=== PATIENT | female | born 1945 ===

== ENCOUNTER 2018-08-28 11:24 | Inpatient (IN) | payer MEDICARE, MEDICAID ==
[2018-08-28] MEDS ORDERED: Iohexol 240 (50 ml) PO ONE (11:53)
[2018-08-28] MEDS ORDERED: Sodium Chloride 0.9% 1,000 ML IV STA (11:58)
[2018-08-28 12:23] LABS: BASO # 0.1 K/uL (0.0-0.2); BASO % 0.6 % (0.0-2.0); EOS # 0.1 K/uL (0.0-0.7); EOS % 1.1 % (0.0-4.0); HEMOGLOBIN 10.2 g/dL (12.0-16.0); LYMPH # 2.2 K/uL (1.0-4.3); LYMPH % 22.6 % (20.0-40.0); MEAN CELL VOLUME 88.1 fl (81.0-99.0); MEAN CORPUSCULAR HEMOGLOBIN 29.2 pg (27.0-31.0); MEAN CORPUSCULAR HGB CONC 33.1 g/dL (33.0-37.0); MEAN PLATELET VOLUME 9.1 fl (7.2-11.7); MONO # 0.8 K/uL (0.0-0.8); NEUT # 6.5 K/uL (1.8-7.0); NEUT % 67.7 % (50.0-75.0); RBC 3.49 Mil/uL (3.80-5.20); RED CELL DISTRIBUTION WIDTH 15.4 % (11.5-14.5); WHITE BLOOD COUNT 9.6 K/uL (4.8-10.8)
[2018-08-28] MEDS ORDERED: Iohexol 240 (50 ml) ONE (12:23)
[2018-08-28 12:32] LABS: INR 0.9; PROTHROMBIN TIME 10.7 Seconds (9.8-13.1)
[2018-08-28 12:35] LABS: PARTIAL THROMBOPLASTIN TIME 29.9 Seconds (25.6-37.1)
[2018-08-28 12:36] LABS: ALT/SGPT 29 U/L (9-52); AST/SGOT 36 U/L (14-36); BLOOD UREA NITROGEN 30 mg/dl (7-17); CALCIUM 10.3 mg/dL (8.4-10.2); GFR NON-AFRICAN AMERICAN 17
--- NOTE | 2018-08-28 12:39 | RAD ---
Date of service: 08/28/2018 HISTORY: dyspnea COMPARISON: 10/11/2010 FINDINGS: LUNGS: No active pulmonary disease. PLEURA: No significant pleural effusion identified, no pneumothorax apparent. CARDIOVASCULAR: No aortic atherosclerotic calcification present. Normal cardiac size. No pulmonary vascular congestion. OSSEOUS STRUCTURES: No significant abnormalities. VISUALIZED UPPER ABDOMEN: Normal. OTHER FINDINGS: None. IMPRESSION: No active disease.
--- NOTE | 2018-08-28 13:42 | ED PDOC ---
HPI: Abdomen History Per: Patient, Family Additional Complaint(s): Pt is a 72 y/o female with hx of Gastritis, Lupus, CKD, Chronic nausea presenting with intractable vomiting, nausea, diarrhea, and abdominal pain x 2 days. daughter at bedside offering most of history as pt was in distress. daughter states she has had chronic nausea for the past 6 months and was diagnosed with gastritis via endoscopy. 1 week ago she was treated for a cellulites of her Right LE with Clindamycin which she has been taking and symptoms began after. Localizes abdominal pain to epigastric region. She denies fevers, chest pain, sob, dysuria, dark tarry stools or bright red bleed. ROS: +Generalized weakness PMD: Dr. Her <Geni Connolly - Last Filed: 08/28/18 15:41> <Gabriel Sheets - Last Filed: 08/28/18 15:48> Time Seen by Provider: 08/28/18 11:37 Chief Complaint (Nursing): Weakness/Neurological Deficit Supervising Attending Note - Supervising Attending Note The Documented history was done by the: Physician Hot Metal Mixer Operator Helper The documented physical exam was done by the: Physician Hot Metal Mixer Operator Helper The documented procedures were done by the: Physician Hot Metal Mixer Operator Helper - Attestation: I have personally seen and examined this patient.: Yes I have fully participated in the care of the patient.: Yes I have reviewed all pertinent clinical information: Yes - Notes: Notes:: Abd pain, nausea, vomit, diarrhea <Gabriel Sheets - Last Filed: 08/28/18 15:48> Past Medical History Reviewed: Historical Data, Nursing Documentation, Vital Signs Vital Signs: Last Vital Signs Temp 97.7 F 08/28/18 11:27 Pulse 82 08/28/18 11:27 Resp 16 08/28/18 11:27 BP 165/89 H 08/28/18 11:27 Pulse Ox 100 08/28/18 11:27 - Medical History PMH: No Chronic Diseases, Gastritis, HTN - Surgical History Surgical History: No Surg Hx - Family History Family History: States: No Known Family Hx - Living Arrangements Living Arrangements: With Family - Social History Current smoker - smoking cessation education provided: No <Geni Connolly - Last Filed: 08/28/18 15:41> Vital Signs: Last Vital Signs Temp 97.7 F 08/28/18 11:27 Pulse 82 08/28/18 11:27 Resp 16 08/28/18 11:27 BP 165/89 H 08/28/18 11:27 Pulse Ox 100 08/28/18 15:42 <Gabriel Sheets M - Last Filed: 08/28/18 15:48> - Home Medications Home Medications: Ambulatory Orders Medication Instructions Recorded Albuterol Sulfate [Proair Hfa] 2 puff IH Q6 PRN 08/28/18 Budesonide/Formoterol Fumarate 2 puff IH Q12 08/28/18 [Symbicort 160-4.5 Mcg Inhaler] Cholecalciferol (Vitamin D3) 5,000 unit PO DAILY 08/28/18 [Vitamin D3] Clindamycin [Cleocin] 300 mg PO TID 08/28/18 Dexlansoprazole [Dexilant] 30 mg PO DAILY 08/28/18 Ferrous Gluconate [Fergon] 324 mg PO BID 08/28/18 Gabapentin [Neurontin] 300 mg PO DAILY 08/28/18 Hydroxychloroquine Sulfate 200 mg PO Q12 08/28/18 [Plaquenil] Insulin Glargine,Hum.rec.anlog 30 unit SC BID 08/28/18 [Lantus] Insulin Lispro [humALOG] 10 unit SC ACTID 08/28/18 Isosorbide Mononitrate ER [Imdur 30 mg PO DAILY 08/28/18 ER] Metoprolol Tartrate [Lopressor] 100 mg PO BID 08/28/18 Ondansetron HCl [Zofran] 4 mg PO Q8 PRN 08/28/18 amLODIPine [Norvasc] 10 mg PO HS 08/28/18 hydrALAZINE [Apresoline] 50 mg PO Q8 08/28/18 - Allergies Allergies/Adverse Reactions: Allergies Allergy/AdvReac Type Severity Reaction Status Date / Time No Known Allergies Allergy Verified 08/28/18 11:27 Review of Systems Constitutional: Negative for: Fever, Chills Cardiovascular: Negative for: Chest Pain, Palpitations Respiratory: Negative for: Cough, Shortness of Breath Gastrointestinal: Positive for: Nausea, Vomiting, Abdominal Pain, Diarrhea. Negative for: Melena, Hematochezia, Hematemesis Genitourinary Female: Negative for: Dysuria Neurological: Positive for: Weakness <Geni Connolly - Last Filed: 08/28/18 15:41> Physical Exam - Physical Exam Appears: Positive for: In Acute Distress (actively vomiting, moderately distressed) Skin: Positive for: Normal Color. Negative for: Diaphoresis, Pallor ENT: Positive for: Normal ENT Inspection Neck: Positive for: Normal Cardiovascular/Chest: Positive for: Regular Rate, Rhythm. Negative for: Murmur Respiratory: Positive for: Normal Breath Sounds. Negative for: Accessory Muscle Use, Crackles, Wheezing Gastrointestinal/Abdominal: Positive for: Bowel Sounds (active), Soft, Tenderness (diffuse, marked in epigastric), Other (Obese abdomen). Negative for: Organomegaly, Distended, Guarding, Rebound, Hernia, Asicites Extremity: Positive for: Other (BL venous stasis with chronic skin changes, no areas of warmth or erythema seen. distal pulses palpable) Neurologic/Psych: Positive for: Alert, Oriented <MohsenGeni bustamante - Last Filed: 08/28/18 15:41> - Physical Exam Cardiovascular/Chest: Positive for: Regular Rate, Rhythm Respiratory: Positive for: Normal Breath Sounds Gastrointestinal/Abdominal: Positive for: Soft, Tenderness <Gabriel Sheets M - Last Filed: 08/28/18 15:48> - Laboratory Results Result Diagrams: 08/28/18 12:10 08/28/18 12:10 Lab Results: PT 10.7 Seconds (9.8-13.1) 08/28/18 12:10 INR 0.9 08/28/18 12:10 APTT 29.9 Seconds (25.6-37.1) 08/28/18 12:10 Troponin I < 0.0120 ng/mL (0.00-0.120) 08/28/18 12:10 Total Bilirubin 0.5 mg/dl (0.2-1.3) 08/28/18 12:10 AST 36 U/L (14-36) 08/28/18 12:10 ALT 29 U/L (9-52) 08/28/18 12:10 Alkaline Phosphatase 81 U/L (38-126) 08/28/18 12:10 Total Protein 7.9 G/DL (6.3-8.2) 08/28/18 12:10 Albumin 4.0 g/dL (3.5-5.0) 08/28/18 12:10 Globulin 3.9 gm/dL (2.2-3.9) 08/28/18 12:10 Albumin/Globulin Ratio 1.0 (1.0-2.1) 08/28/18 12:10 - ECG O2 Sat by Pulse Oximetry: 100 <Geni Connolly - Last Filed: 08/28/18 15:41> - Laboratory Results Result Diagrams: 08/28/18 12:10 08/28/18 12:10 Lab Results: PT 10.7 Seconds (9.8-13.1) 08/28/18 12:10 INR 0.9 08/28/18 12:10 APTT 29.9 Seconds (25.6-37.1) 08/28/18 12:10 Troponin I < 0.0120 ng/mL (0.00-0.120) 08/28/18 12:10 Total Bilirubin 0.5 mg/dl (0.2-1.3) 08/28/18 12:10 AST 36 U/L (14-36) 08/28/18 12:10 ALT 29 U/L (9-52) 08/28/18 12:10 Alkaline Phosphatase 81 U/L (38-126) 08/28/18 12:10 Total Protein 7.9 G/DL (6.3-8.2) 08/28/18 12:10 Albumin 4.0 g/dL (3.5-5.0) 08/28/18 12:10 Globulin 3.9 gm/dL (2.2-3.9) 08/28/18 12:10 Albumin/Globulin Ratio 1.0 (1.0-2.1) 08/28/18 12:10 - ECG Pulse Ox Interpretation: Normal - CT Scan/US ct Other Rad Studies (CT/US): Read By Radiologist Other Rad Interpretation: colitis - Progress ED Course And Treament: 1547: Stable. AAOx3. Pain controlled. Spoke with Dr. Garcia. Will admit. <Gabriel Shetes - Last Filed: 08/28/18 15:48> Medical Decision Making Medical Decision Making: PT is a 72 y/o female with hx of gastritis and chronic vomiting, presenting with 2 day hx of acute abdominal pain, intractable vomiting, and diarrhea, in recent setting of antiboitic use. CBC CMP Lipase C deff, Stool Cx Abdomen Pelvis CT w/ IV contrast Cxray EKG Pepcid Pantaprazole 1300 PT re-assessed, reports vomiting resolved. Lying in bed, appears comfortable. Granddaughter at bedside. Labs reviewed- C BUN 30/ Crea2.8. Pt reports that she was told her Kidney function is low. No labs for comparison. Remainder of labs normal. CT abdomen pending 1342 CT abdomen report reviewed: <Geni Connolly - Last Filed: 08/28/18 15:41> Disposition <Geni Connolly - Last Filed: 08/28/18 15:41> - Patient ED Disposition Is Patient to be Admitted: Yes Counseled Patient/Family Regarding: Studies Performed, Diagnosis - Disposition Disposition Time: 15:48 - Pt Status Changed To: Hospital Disposition Of: Inpatient - Admit Certification Admit to Inpatient:: After my assessment, the patient will require hospitalization for at least two midnights. This is because of the severity of symptoms shown, intensity of services needed, and/or the medical risk in this patient being treated as an outpatient. - POA Present On Arrival: None <Gabriel Sheets - Last Filed: 08/28/18 15:48> - Clinical Impression Clinical Impression: Renal insufficiency, Colitis, Dehydration - Disposition Condition: FAIR
--- NOTE | 2018-08-28 15:25 | CT ---
Date of service: 08/28/2018 PROCEDURE: CT Abdomen and Pelvis with contrast HISTORY: abdominal pain, vomiting, diarrhea COMPARISON: None. TECHNIQUE: Oral contrast only. Radiation dose: Total exam DLP = <inf_radiation_dlp> mGy-cm. This CT exam was performed using one or more of the following dose reduction techniques: Automated exposure control, adjustment of the mA and/or kV according to patient size, and/or use of iterative reconstruction technique. FINDINGS: LOWER THORAX: Unremarkable. LIVER: Unremarkable. No gross lesion or ductal dilatation. GALLBLADDER AND BILE DUCTS: Unremarkable. PANCREAS: Unremarkable. No gross lesion or ductal dilatation. SPLEEN: Unremarkable. ADRENALS: Unremarkable. No mass. KIDNEYS AND URETERS: Unremarkable. No hydronephrosis. No solid mass. VASCULATURE: Unremarkable. No aortic aneurysm. No atherosclerotic calcification or mural plaque present. BOWEL: Thickening of the wall of the colon in its entirety. The findings are suspicious for colitis. Diverticulosis without an acute inflammatory component or other associated pathologic process. APPENDIX: A normal appendix is visualized in it's entirety. PERITONEUM: Unremarkable. No free fluid. No free air. LYMPH NODES: Unremarkable. No enlarged lymph nodes. BLADDER: Unremarkable. REPRODUCTIVE: Calcified, fibroid uterus. BONES: No acute fracture. OTHER FINDINGS: None. IMPRESSION: Thickening of the wall of the colon likely to represent diffuse colitis without evidence of mechanical obstruction. Additional benign and/or incidental findings described above.
[2018-08-28] MEDS ORDERED: Piperacillin/Tazobact 3.375 GM in Sodium Chloride 0.9% 100 ML IV STA (15:35)
[2018-08-28] MEDS ORDERED: Piperacillin/Tazobact 3.375 gm Inj IVPB ONE (16:36)
[2018-08-28] MEDS ORDERED: Morphine 4 MG/ML VIAL IVP STA (19:00)
[2018-08-29] MEDS: Dextrose 5%/0.9% NS 1,000 ML IV SCH ×2 (02:04→13:22)
[2018-08-29 08:50] LABS: HEMOGLOBIN 9.9 g/dL (12.0-16.0); MEAN CELL VOLUME 89.7 fl (81.0-99.0); MEAN CORPUSCULAR HEMOGLOBIN 29.8 pg (27.0-31.0); MEAN CORPUSCULAR HGB CONC 33.3 g/dL (33.0-37.0); RBC 3.31 Mil/uL (3.80-5.20); RED CELL DISTRIBUTION WIDTH 15.7 % (11.5-14.5); WHITE BLOOD COUNT 8.2 K/uL (4.8-10.8)
[2018-08-29 09:51] LABS: ALBUMIN 3.6 g/dL (3.5-5.0); CALCIUM 9.6 mg/dL (8.4-10.2)
--- NOTE | 2018-08-29 13:27 | CARD ---
APPROVED REPORT Date of service: 08/28/2018 EKG Measurement Heart [id number] <Conclusion> Normal sinus rhythm Minimal voltage criteria for LVH, may be normal variant Borderline ECG
[2018-08-29] MEDS ORDERED: Sodium Chloride 0.9% 1,000 ML IV SCH (20:15)
[2018-08-29] MEDS: Ciprofloxacin 400mg/200ml D5W 400 MG/200 ML BAG IVPB SCH (21:05)
--- NOTE | 2018-08-30 03:18 | CON ---
DATE: 08/29/2018 NEPHROLOGY CONSULTATION LOCATION: [facility]. PROVIDING NEPHROLOGY COVERAGE FOR: Dr. Gomez. HISTORY OF PRESENT ILLNESS: The patient is a 72-year-old female with past medical history of gastritis, lupus, and CKD, presented with intractable vomiting. Nephrology being consulted for renal insufficiency. The patient reports persistent vomiting since previous 4 days prior to presentation; reports inability to keep down any p.o. intake without vomiting; did have several episodes of diarrhea yesterday and today. Vomiting has subsided today and the patient currently tolerating p.o. liquid diet. The patient otherwise denies any lightheadedness/dizziness. Denies any decrease in urination. The patient reports following with her senior cytogenetic technologist although she cannot remember the name; reports kidney function of about 32 several months ago. The patient denies ever having renal biopsy. PAST MEDICAL HISTORY: As above. SOCIAL HISTORY: Nonsmoker. FAMILY HISTORY: Unknown. MEDICATIONS: Only takes Tylenol, denies any NSAID use. REVIEW OF SYSTEMS: CONSTITUTIONAL: Appetite had been good up until vomiting started. HEENT: Stable vision. No dysphagia. RESPIRATORY: Denies any dyspnea. CARDIOVASCULAR: No chest pain, no palpitations. GASTROINTESTINAL: As per HPI. GENITOURINARY: As per HPI. Also with some mild dysuria. 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 NEUROLOGIC: No dizziness. SKIN: Denies any pruritus or rashes. PHYSICAL EXAMINATION: VITAL SIGNS: This evening, blood pressure 164/88, heart rate 102, respirations 20, temperature 97.6, O2 sat 96% on room air. GENERAL: No distress, conversing coherently in full sentences. HEENT: Moist mucous membranes. Nonicteric. No cervical lymphadenopathy. RESPIRATORY: Lungs are clear to auscultation bilaterally. No rales, no rhonchi, and no wheezes. CARDIOVASCULAR: Heart sound S1 and S2 normal. No murmurs, no gallops, no rubs. GASTROINTESTINAL: Abdomen is soft, nontender, nondistended. GENITOURINARY: No bladder distention. EXTREMITIES: No lower extremity edema. NEUROLOGIC: Normal sensation in distal extremities. PSYCHIATRIC: Normal mood. Normal affect. SKIN: Warm. No cyanosis. LABORATORY DATA: From this morning, CBC: WBC 8.2, hemoglobin 9.9, hematocrit 29.7, and platelets 108. Chemistry panel: Sodium 139, potassium 3.8, chloride 103, bicarb 25, BUN 24, creatinine 2.9, glucose 162, calcium 9.6. AST 31, ALT 39. Albumin 3.6. No urine studies available. CT abdomen and pelvis directly visualized. No hydronephrosis. ASSESSMENT AND PLAN: 1. Renal insufficiency. Renal function not available at this time; unclear if current serum creatinine level reflects her baseline or there is a component of acute kidney injury. No improvement seen with intravenous fluids despite getting 1 L bolus in emergency room and being kept on intravenous fluids during admission. Cannot rule out any glomerular disease without further studies including at least urinalysis. For now, we will check urine electrolytes. Checking complements, antinuclear antibody, double-stranded DNA antibody and anti-Rodriguez antibody to look for evidence of active lupus. Checking random urine for protein and creatinine to assess for degree of proteinuria. Need to avoid nephrotoxic agents. We will try to obtain outside records to assess the patient's baseline renal function. 2. Hypertensive chronic kidney disease. Blood pressure markedly elevated, although the patient did not receive any antihypertensive medications this morning; currently being restarted on home medications, we will reassess after all home medications given. Otherwise, a stable volume status. No need for diuretics at this time. We will continue gentle intravenous fluids. 3. Anemia, possibly due to chronic kidney disease. We will check iron studies and treat accordingly. 4. Chronic kidney disease. We will obtain renal ultrasound to assess for evidence of longstanding chronic kidney disease. We will obtain parathyroid hormone and 25-hydroxy vitamin D levels to assess and treat chronic kidney disease mineral bone disorder. 5. Colitis. The patient currently on Cipro and Flagyl. Cipro needs to be dosed for creatinine clearance less than 20 and dosed just once daily; no renal dose reduction needed for Flagyl. 6. Systemic lupus erythematosus, unclear if there is any renal manifestation of this disease, currently on Plaquenil. We will continue the same, checking for evidence of just nephritis as above. Thank you for this referral. We will be following up closely. Dave York MD
[2018-08-30] MEDS ORDERED: Pantoprazole 40 mg EC Tab PO SCH (09:00)
[2018-08-30] MEDS: Ciprofloxacin 400mg/200ml D5W 400 MG/200 ML BAG IVPB SCH (09:23)
[2018-08-30 11:39] VITALS: RESP 20
[2018-08-30 13:20] LABS: CALCIUM 9.5 mg/dL (8.4-10.2)
--- NOTE | 2018-08-30 14:42 | CP.PCM.HP ---
History of Present Illness - History of Present Illness History of Present Illness: This is a 72 y/o female with hx of recent foot cellulitis and Clindamycin use who started having vomiting and diarrhea few days after started on the po antibiotics. Claims that symptoms mayo diarrhea have worsened hence loree feng. CT scan showed diffused colitis. Medical hx SLE CKD 3 gastritis She follows up with DR Dipak Bo in [place] and DR Valencia renal. Present on Admission - Present on Admission Any Indicators Present on Admission: No History of DVT/PE: No History of Uncontrolled Diabetes: No Urinary Catheter: No Decubitus Ulcer Present: No Past Patient History - Past Medical History & Family History Past Medical History?: Yes - Past Social History Smoking Status: Never Smoked - CARDIAC Hx Cardiac Disorders: Yes Hx Hypertension: Yes - PULMONARY Hx Respiratory Disorders: No - NEUROLOGICAL Hx Neurological Disorder: No - HEENT Hx HEENT Problems: No - RENAL Hx Chronic Kidney Disease: No - ENDOCRINE/METABOLIC Hx Endocrine Disorders: Yes Hx Diabetes Mellitus Type 2: Yes Hx Systemic Lupus Erythematosus: Yes - HEMATOLOGICAL/ONCOLOGICAL Hx Blood Disorders: No - INTEGUMENTARY Hx Dermatological Problems: No - MUSCULOSKELETAL/RHEUMATOLOGICAL Hx Musculoskeletal Disorders: Yes Hx Falls: Yes Hx Unsteady Gait: Yes - GASTROINTESTINAL Hx Gastrointestinal Disorders: Yes Hx Gastritis: Yes - GENITOURINARY/GYNECOLOGICAL Hx Genitourinary Disorders: No - PSYCHIATRIC Hx Psychophysiologic Disorder: No Hx Substance Use: No - SURGICAL HISTORY Hx Surgeries: Yes Other/Comment: left foot sx. - ANESTHESIA Hx Anesthesia: Yes Hx Anesthesia Reactions: No Hx Malignant Hyperthermia: No Has any member of the family had a problem w/ anesthesia?: No Meds Allergies/Adverse Reactions: Allergies Allergy/AdvReac Type Severity Reaction Status Date / Time No Known Allergies Allergy Verified 08/28/18 11:27 Physical Exam - GI/Abdominal Exam GI & Abdominal Exam: Normal Bowel Sounds, Tenderness Results - Vital Signs Recent Vital Signs: Last Vital Signs Temp 97.7 F 08/30/18 09:00 Pulse 80 08/30/18 09:20 Resp 20 08/30/18 09:00 BP 155/80 H 08/30/18 09:20 Pulse Ox 99 08/30/18 09:00 - Labs Result Diagrams: 08/29/18 06:50 08/30/18 11:41 Labs: Laboratory Results - last 24 hr 02/08/29/18 08/30/18 16:33 21:18 05:30 Sodium Potassium Chloride Carbon Dioxide Anion Gap BUN Creatinine Est GFR ( Amer) Est GFR (Non-Af Amer) POC Glucose (mg/dL) 191 H 192 H Random Glucose Calcium Iron 71 TIBC 280 % Saturation 25 Ferritin 08/30/18 08/30/18 08/30/18 05:30 05:44 11:09 Sodium Potassium Chloride Carbon Dioxide Anion Gap BUN Creatinine Est GFR ( Amer) Est GFR (Non-Af Amer) POC Glucose (mg/dL) 151 H 254 H Random Glucose Calcium Iron TIBC % Saturation Ferritin 100.0 08/30/18 11:41 Sodium 139 Potassium 3.9 Chloride 103 Carbon Dioxide 25 Anion Gap 15 BUN 19 H Creatinine 2.5 H Est GFR ( Amer) 23 Est GFR (Non-Af Amer) 19 POC Glucose (mg/dL) Random Glucose 166 H Calcium 9.5 Iron TIBC % Saturation Ferritin Assessment & Plan (1) Colitis Status: Acute (2) Dehydration Status: Acute (3) CKD (chronic kidney disease) stage 4, GFR 15-29 ml/min Status: Acute - Assessment and Plan (Free Text) Plan: Cont iv antibiotics Cipro Flagyl GI eval. She was kept NPO will start clear liquids
--- NOTE | 2018-08-30 14:49 | CP.PCM.PN ---
Subjective - Date & Time of Evaluation Date of Evaluation: 08/30/18 Time of Evaluation: 13:00 - Subjective Subjective: Patient is doing better Tolerated food Now advance to soft diet Has no chest pain or SOB. Objective - Vital Signs/Intake and Output Vital Signs (last 24 hours): Temp Pulse Resp BP Pulse Ox 97.7 F 80 20 155/80 H 99 08/30/18 09:00 08/30/18 09:20 08/30/18 09:00 08/30/18 09:20 08/30/18 09:00 - Medications Medications: Current Medications Amlodipine Besylate (Norvasc) 10 mg PO DAILY [facility] Last Admin: 08/30/18 09:20 Dose: 10 mg Ciprofloxacin (Cipro) 500 mg PO Q12 [facility]; Protocol Ferrous Gluconate (Fergon) 324 mg PO DAILY [facility] Last Admin: 08/30/18 09:19 Dose: 324 mg Hydralazine HCl (Apresoline) 50 mg PO Q8 [facility] Hydroxychloroquine Sulfate (Plaquenil) 200 mg PO DAILY [facility]; Protocol Last Admin: 08/30/18 09:19 Dose: 200 mg Isosorbide Mononitrate (Imdur Er) 30 mg PO DAILY [facility] Last Admin: 08/30/18 09:20 Dose: 30 mg Metoprolol Tartrate (Lopressor) 100 mg PO Q12 [facility] Last Admin: 08/30/18 09:18 Dose: 100 mg Metronidazole (Flagyl) 500 mg PO Q8 [facility]; Protocol Last Admin: 08/30/18 09:20 Dose: 500 mg Ondansetron HCl (Zofran Inj) 4 mg IVP Q8 PRN PRN Reason: Nausea/Vomiting Pantoprazole Sodium (Protonix Ec Tab) 40 mg PO DAILY [facility] - Labs Labs: 08/29/18 06:50 08/30/18 11:41 PT 10.7 Seconds (9.8-13.1) 08/28/18 12:10 INR 0.9 08/28/18 12:10 APTT 29.9 Seconds (25.6-37.1) 08/28/18 12:10 - Head Exam Head Exam: NORMAL INSPECTION - Eye Exam Eye Exam: Normal appearance - ENT Exam ENT Exam: Mucous Membranes Moist - Respiratory Exam Respiratory Exam: Clear to Ausculation Bilateral - Cardiovascular Exam Cardiovascular Exam: REGULAR RHYTHM - GI/Abdominal Exam GI & Abdominal Exam: Soft Assessment and Plan (1) Colitis Status: Acute (2) Dehydration Status: Acute (3) CKD (chronic kidney disease) stage 4, GFR 15-29 ml/min Status: Acute - Assessment and Plan (Free Text) Plan: Contmeds follow up with renal continue to advance diet DC plan for tomorrow start po Cipro.
[2018-08-30 16:13] LABS: COMPLEMENT C4 22.6 mg/dL (14.0-44.0)
[2018-08-30 19:08] LABS: CREATININE, RANDOM URINE 119.8 mg/dL
[2018-08-30 19:11] LABS: SQUAMOUS EPITHIAL 1 /hpf (0-5); URINE BILIRUBIN NEGATIVE (NEGATIVE); URINE BLOOD NEGATIVE (NEGATIVE); URINE CLARITY CLOUDY (Clear); URINE COLOR YELLOW (YELLOW); URINE GLUCOSE (UA) 50 mg/dL (NEGATIVE); URINE LEUKOCYTE ESTERASE LARGE Leu/uL (Negative); URINE PROTEIN >=500 mg/dL (NEGATIVE); URINE UROBILINOGEN 0.2-1.0 mg/dL (0.2-1.0)
[2018-08-30 19:12] LABS: URINE BACTERIA MANY (<OCC)
[2018-08-30] MEDS ORDERED: Bisacodyl 5mg EC Tab PO ONE (21:00)
--- NOTE | 2018-08-30 23:42 | CON ---
DATE: 08/30/2018 REFERRED BY: Hari Garcia MD HISTORY OF PRESENT ILLNESS: This is a very pleasant 72-year-old woman, who apparently is known to Dr. Dempsey, my partner, who recently according to the patient underwent both an upper and lower endoscopy who presented with complaint of nausea and upper GI upset. At no time, she had any diarrhea, blood per rectum, or any melena. She was admitted, however, because a CAT scan showed thickening of the colonic wall throughout which is suspicious for colitis and it also showed diverticular disease. At the time of my evaluation this morning, she was feeling better and tolerated her usual diet this morning without any nausea, vomiting, or abdominal pain. She still has not had a bowel movement today, so she at no time had any blood per rectum or any melena, and as mentioned, she said she had an endoscopy and a colonoscopy recently, the results of which are unavailable to me at the moment. PAST MEDICAL HISTORY: She is diabetic, hypertensive, and has coronary artery disease. PAST SURGICAL HISTORY: Negative. MEDICATIONS HERE IN THE HOSPITAL: She is on hydralazine 50 mg every 12 hours p.o. She is on IV Cipro, IV Flagyl. She takes iron supplementation, isosorbide mononitrate 30 mg daily, metoprolol 100 mg every 12 hours, amlodipine 10 mg daily, hydroxychloroquine 200 mg daily. She is on pantoprazole 40 mg daily and she was on Zofran. ALLERGIES: SHE HAS NO KNOWN DRUG ALLERGIES. FAMILY HISTORY: Noncontributory. SOCIAL HISTORY: Denies any alcohol, tobacco, or drug use. PHYSICAL EXAMINATION: GENERAL: She is a well-developed, well-nourished, obese, woman awake, alert, and oriented x3. No acute distress. VITAL SIGNS: Stable. She is afebrile. ABDOMEN: Soft. Good bowel sounds. Nontender, nondistended. No hepatosplenomegaly, palpable masses, or lesions. LABORATORY DATA: Laboratories were reviewed. White count is normal. CAT scan was noted. IMPRESSION AND PLAN: A 72-year-old woman with some nausea, some upper gastrointestinal upset. She did recently undergo endoscopic workup, results of which are not available to me at the moment; however, I will follow up in my office. She was admitted with a working diagnosis of colitis given the CAT scan finding; however, clinically there is no evidence of colitis whatsoever. She does have normal white blood cell count. She has no abdominal pain, no diarrhea, no blood per rectum, nothing at all, and therefore I would recommend to discontinue her antibiotics. If she tolerates her diet for lunch, she could probably be discharged home. We will continue with daily proton pump inhibitor. Follow up with us as an outpatient. If she does not tolerate the diet, then we may need to add some Reglan, perhaps she has an underlying element of gastroparesis, and we will follow along with you. Matthew Sharma MD
[2018-08-31 08:14] VITALS: TEMP 98.2; O2SAT 96
[2018-08-31 08:46] VITALS: BP 175/78; PULSE 83
[2018-08-31] MEDS ORDERED: Sucralfate 1 gm/10 ml Oral Susp UD PO ONE (08:59)
[2018-08-31] MEDS ORDERED: Pantoprazole 40 mg EC Tab PO SCH (09:00)
[2018-08-31 09:31] LABS: BASO % 0.4 % (0.0-2.0); EOS # 0.5 K/uL (0.0-0.7); EOS % 5.7 % (0.0-4.0); HEMOGLOBIN 8.9 g/dL (12.0-16.0); LYMPH # 1.7 K/uL (1.0-4.3); LYMPH % 21.7 % (20.0-40.0); MEAN CORPUSCULAR HEMOGLOBIN 29.9 pg (27.0-31.0); MEAN PLATELET VOLUME 9.4 fl (7.2-11.7); MONO # 0.7 K/uL (0.0-0.8); MONO % 8.8 % (0.0-10.0); NEUT # 5.1 K/uL (1.8-7.0); NEUT % 63.4 % (50.0-75.0); NRBC % 0.1 % (0.0-0.0); RBC 2.97 Mil/uL (3.80-5.20); RED CELL DISTRIBUTION WIDTH 15.4 % (11.5-14.5)
[2018-08-31 09:52] LABS: ALBUMIN 3.1 g/dL (3.5-5.0)
--- NOTE | 2018-08-31 10:24 | CP.PCM.DIS ---
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 Reason for Referral: Discharge Planning Social Work Referral Routine Comment: see above Physician Instructions: Reason For Exam: has homemaker / has advanced directive 08/29/18 06:15 Pastoral Care Referral Routine Comment: Physician Instructions: Reason For Exam: [employer] 08/29/18 08:26 Nephrology Consult Routine Comment: Consulting Provider: Dion Gomez Consulting Physician: Dion Gomez Reason for Consult: Elevated BUN creatinine 08/29/18 17:22 Gastroenterology Consult Routine Comment: Consulting Provider: Matthew Sharma Consulting Physician: Matthew Sharma Reason for Consult: colitis 08/30/18 13:00 Nephrology Consult Routine Comment: Consulting Provider: James Valencia Consulting Physician: James Valencia Reason for Consult: acute renal insufficiency Time Spent in preparation of Discharge (in minutes): 30 Diagnosis - Discharge Diagnosis (1) Colitis Status: Acute (2) Dehydration Status: Resolved Hospital Course - Lab Results Lab Results: Micro Results 08/28/18 18:40 Blood-Venous Blood Culture - Preliminary NO GROWTH AFTER 48 HOURS 08/28/18 18:28 Blood-Venous Blood Culture - Preliminary NO GROWTH AFTER 48 HOURS Most Recent Lab Values WBC 8.0 K/uL (4.8-10.8) 08/31/18 09:07 RBC 2.97 Mil/uL (3.80-5.20) L 08/31/18 09:07 Hgb 8.9 g/dL (12.0-16.0) L 08/31/18 09:07 Hct 26.1 % (34.0-47.0) L 08/31/18 09:07 MCV 88.0 fl (81.0-99.0) 08/31/18 09:07 MCH 29.9 pg (27.0-31.0) 08/31/18 09:07 MCHC 34.0 g/dL (33.0-37.0) 08/31/18 09:07 RDW 15.4 % (11.5-14.5) H 08/31/18 09:07 Plt Count 79 K/uL (130-400) L D 08/31/18 09:07 MPV 9.4 fl (7.2-11.7) 08/31/18 09:07 Neut % (Auto) 63.4 % (50.0-75.0) 08/31/18 09:07 Lymph % (Auto) 21.7 % (20.0-40.0) 08/31/18 09:07 [place] % (Auto) 8.8 % (0.0-10.0) 08/31/18 09:07 Eos % (Auto) 5.7 % (0.0-4.0) H 08/31/18 09:07 Baso % (Auto) 0.4 % (0.0-2.0) 08/31/18 09:07 Neut # (Auto) 5.1 K/uL (1.8-7.0) 08/31/18 09:07 Lymph # (Auto) 1.7 K/uL (1.0-4.3) 08/31/18 09:07 [place] # (Auto) 0.7 K/uL (0.0-0.8) 08/31/18 09:07 Eos # (Auto) 0.5 K/uL (0.0-0.7) 08/31/18 09:07 Baso # (Auto) 0.0 K/uL (0.0-0.2) 08/31/18 09:07 PT 10.7 Seconds (9.8-13.1) 08/28/18 12:10 INR 0.9 08/28/18 12:10 APTT 29.9 Seconds (25.6-37.1) 08/28/18 12:10 Sodium 134 mmol/l (132-148) 08/31/18 09:07 Potassium 4.2 MMOL/L (3.6-5.0) 08/31/18 09:07 Chloride 99 mmol/L (98-107) 08/31/18 09:07 Carbon Dioxide 25 mmol/L (22-30) 08/31/18 09:07 Anion Gap 14 (10-20) 08/31/18 09:07 BUN 23 mg/dl (7-17) H 08/31/18 09:07 Creatinine 2.8 mg/dl (0.7-1.2) H 08/31/18 09:07 Est GFR ( Amer) 20 08/31/18 09:07 Est GFR (Non-Af Amer) 17 08/31/18 09:07 POC Glucose (mg/dL) 159 mg/dL (65-110) H 08/31/18 05:40 Random Glucose 191 mg/dL (65-105) H 08/31/18 09:07 Calcium 9.0 mg/dL (8.4-10.2) 08/31/18 09:07 Iron 71 ug/dL (37-170) 08/30/18 05:30 TIBC 280 ug/dL (250-450) 08/30/18 05:30 % Saturation 25 % (20-55) 08/30/18 05:30 Ferritin 100.0 ng/Ml (11.1-264.0) 08/30/18 05:30 Total Bilirubin 0.4 mg/dl (0.2-1.3) 08/31/18 09:07 AST 26 U/L (14-36) 08/31/18 09:07 ALT 26 U/L (9-52) 08/31/18 09:07 Alkaline Phosphatase 69 U/L (38-126) 08/31/18 09:07 Troponin I < 0.0120 ng/mL (0.00-0.120) 08/28/18 12:10 Total Protein 6.3 G/DL (6.3-8.2) 08/31/18 09:07 Albumin 3.1 g/dL (3.5-5.0) L 08/31/18 09:07 Globulin 3.2 gm/dL (2.2-3.9) 08/31/18 09:07 Albumin/Globulin Ratio 1.0 (1.0-2.1) 08/31/18 09:07 25-OH Vitamin D Total 19.1 NG/ML (30.0-100.0) L 08/30/18 05:30 Urine Color Yellow (YELLOW) 08/29/18 18:56 Urine Clarity Cloudy (Clear) 08/29/18 18:56 Urine pH 5.0 (5.0-8.0) 08/29/18 18:56 Ur Specific [place] 1.014 (1.003-1.030) 08/29/18 18:56 Urine Protein >=500 mg/dL (NEGATIVE) 08/29/18 18:56 Urine Glucose (UA) 50 mg/dL (NEGATIVE) 08/29/18 18:56 Urine Ketones Negative mg/dL (NEGATIVE) 08/29/18 18:56 Urine Blood Negative (NEGATIVE) 08/29/18 18:56 Urine Nitrate Negative (NEGATIVE) 08/29/18 18:56 Urine Bilirubin Negative (NEGATIVE) 08/29/18 18:56 Urine Urobilinogen 0.2-1.0 mg/dL (0.2-1.0) 08/29/18 18:56 Ur Leukocyte Esterase Large Loni/uL (Negative) 08/29/18 18:56 Urine RBC (Auto) 14 /hpf (0-3) H 08/29/18 18:56 Urine Microscopic WBC 271 /hpf (0-5) H 08/29/18 18:56 Ur Squamous Epith Cells 1 /hpf (0-5) 08/29/18 18:56 Urine Bacteria Many (<OCC) H 08/29/18 18:56 Ur Random Creatinine 119.8 mg/dL 08/29/18 18:52 Ur Random Sodium 38 mmol/L 08/29/18 18:52 Complement C3 79.0 mg/dL (88.0-165.0) L 08/30/18 05:30 Complement C4 22.6 mg/dL (14.0-44.0) 08/30/18 05:30 - Hospital Course Hospital Course: 72 yo female admitted for colitis and dehydration improved with IV treatment diet advanced as tolerated patient discharged in stable condition with PO cipro x 7 days and zofran/zantac prn. follow up with PCP in 1 wk Discharge Exam - Head Exam Head Exam: NORMAL INSPECTION - Eye Exam Eye Exam: Normal appearance - Neck Exam Neck exam: Normal Inspection - Respiratory Exam Respiratory Exam: NORMAL BREATHING PATTERN - Cardiovascular Exam Cardiovascular Exam: +S1, +S2 - GI/Abdominal Exam GI & Abdominal Exam: Soft - Neurological Exam Neurological exam: Alert, Oriented x3 - Psychiatric Exam Psychiatric exam: Normal Affect, Normal Mood - Skin Skin Exam: Normal Color, Warm Discharge Plan - Discharge Medications Prescriptions: Ciprofloxacin [Cipro] 500 mg PO Q12 #14 tab Ondansetron HCl [Zofran] 4 mg PO Q8 PRN #10 tablet PRN Reason: Nausea/Vomiting Ranitidine HCl [Zantac] 150 mg PO BID #30 tablet - Follow Up Plan Condition: FAIR Disposition: HOME/ ROUTINE Instructions: Dehydration, Adult (DC), Colitis (DC) Referrals: Reva Barrett MD [Family Provider] - Matthew Sharma [Staff Provider] - James Valencia MD [Staff Provider] - Dion Gomez MD [Staff Provider] -
--- NOTE | 2018-09-01 22:32 | PQF ---
PROVIDER RESPONSE TEXT: Provider was unable to determine a response for this query. REVIEWER QUERY TEXT: Documentation Clarification Your help is requested in clarifying the following clinical documentation, if you can please further specify in the medical record and discharge summary. AFTER WORK-UP please clarify the suspected type of colitis Such as: --allergic --drug induced --infectious -- please specify organism if known --ischemic --pseudomembraneous --regional --other please specify The patient's Clinical Indicators include: History of recent foot cellulitis and Clindamycin use who started having vomiting and diarrhea few da ys after started on the po antibiotics. CT: Likely diffuse colitis, WBC 9.6, Afebrile Stool analysis pending collection Rx: IV Cipro Query created by: Sil Montanez on 08/31/2018 8:34 AM Electronically signed by: Hari Garcia MD 09/01/2018 10:28 PM
== END 2018-08-31 13:58 | disposition home or self-care (01) | DRG 641 ==
LOC: H.ER 11:24 → MERGE 15:42 → UNMERGE 15:42 → H.ERHOLD 15:42 → H.MEDSURG1 21:13
PROVIDERS: ADMIT Family Medicine; ATTEND Family Medicine
DX: E86.0 Dehydration (principal); N18.4 Chronic kidney disease, stage 4 (severe); K52.9 Noninfective gastroenteritis and colitis, unspecified; I12.9 Hypertensive chronic kidney disease with stage 1 through stage 4 chronic kidney disease, or unspecified chronic kidney disease; E11.22 Type 2 diabetes mellitus with diabetic chronic kidney disease; M32.9 Systemic lupus erythematosus, unspecified; D63.1 Anemia in chronic kidney disease; Z79.4 Long term (current) use of insulin; K29.70 Gastritis, unspecified, without bleeding